=== PATIENT | female | born 1980 | race African-American/Black ===

== ENCOUNTER 2021-02-05 17:45 | Emergency (ER) | payer OTHER ==
[~2021-02-05] VITALS: Ht 175.3 cm; Wt 92.0 kg
[2021-02-05 18:04] VITALS: BP 143/97
[2021-02-05] MEDS ORDERED: ONDANSETRON ODT 4 MG TAB.RAPDIS PO ONE (18:15)
[2021-02-05] MEDS ORDERED: METOCLOPRAMIDE HCL 10 MG/2 ML VIAL. IVP ONE (18:15)
[2021-02-05] MEDS ORDERED: IV RINGERS SOLUTION,LACTATED 1,000 ML IV ONE (18:15)
--- NOTE | 2021-02-05 18:17 | PHYS DOC ---
Adult General Chief Complaint Chief Complaint: NAUSEA/VOMITING/DIARRHEA HPI HPI Patient is a 40-year-old female presents with nausea, vomiting and diarrhea which started 4 days ago after her and her family returned from [place]. States that both of her sons and other family members had similar symptoms of nausea, vomiting diarrhea which have now resolved. States that today she has had approximately three episodes of nonbloody nonbilious emesis and three episodes of watery diarrhea that was nonbloody. Denies any other recent illnesses, fevers, chest pain, shortness of breath, abdominal pain, dysuria, hematuria, blood in the stool. Denies any vaginal bleeding, discharge, pain or history of STIs. Review of Systems Review of Systems Review of systems otherwise unremarkable except noted in HPI Allergies Allergies Allergies Coded Allergies Type Severity Reaction Last Updated Verified No Known Drug Allergies 02/05/21 No Physical Exam Physical Exam Constitutional: Well developed, well nourished, no acute distress, non-toxic appearance. [] HENT: Normocephalic, atraumatic, bilateral external ears normal, oropharynx dry, no oral exudates, nose normal. [] Eyes: conjunctiva normal, no discharge. [] Neck: Normal range of motion, no tenderness, supple, no stridor. [] Cardiovascular:Heart rate regular rhythm, no murmur [] Lungs & Thorax: Bilateral breath sounds clear to auscultation [] Abdomen: soft, no tenderness, no masses, no pulsatile masses. [] Skin: Warm, dry, no erythema, no rash. [] Back: no CVA tenderness. [] Extremities: No tenderness, no cyanosis, no clubbing, ROM intact, no edema. [] Neurologic: Alert and oriented X 3, no focal deficits noted. [] Psychologic: Affect normal, judgement normal, mood normal. [] EKG EKG [] Radiology/Procedures Radiology/Procedures [] Heart Score C/O Chest Pain: No Risk Factors: Risk Factors: DM, Current or recent (<one month) smoker, HTN, HLP, family history of CAD, obesity. Risk Scores: Risk Factors: DM, Current or recent (<one month) smoker, HTN, HLP, family history of CAD, obesity. Course & Med Decision Making Course & Med Decision Making Patient is a 40-year-old female presents with nausea, vomiting and diarrhea Vital signs not concerning. Physical exam noted above. EKG with a rate of 91, QRS of 86, QTc of 413. Placed on the monitor with IV access established and IV fluid begun. Given nausea medicine. Urine negative. Urinalysis not concerning. Chemistry not concerning. On reevaluation patient stated she was feeling 100% better, was ready to be discharged home. Given nausea medicine for home. Discussed symptomatic treatment at home. Advised to follow-up with primary care physician. Gave return precautions to the ED. Patient grateful, verbalized understanding and agreed with plan of discharge. Dragon Disclaimer Dragon Disclaimer This electronic medical record was generated, in whole or in part, using a voice recognition dictation system. Departure Departure: Impression: Primary Impression: Nausea & vomiting Disposition: 01 HOME / SELF CARE / HOMELESS Condition: GOOD Referrals: MAREN LICEA MD (PCP) Patient Instructions: Diarrhea, Nausea and Vomiting Additional Instructions: Thank you for coming into the emergency department tonight and allowing us to take care of you. Please read the attached information carefully to go back over things we discussed. Please take your nausea medicine as prescribed and as needed. Please stay well-hydrated. Please follow-up with your primary care physician as needed. Please come back with new or concerning symptoms as we discussed. MATT GRACIA MD Feb 05, 2021 18:17
[2021-02-05 19:22] LABS: BACTERIA,URINE 0 /HPF (0-FEW); BILIRUBIN,URINE NEG (NEG); CLARITY,URINE CLEAR; COLOR,URINE YELLOW; GLUCOSE,URINE NEG (NEG); NITRITE,URINE NEG (NEG); RBC,URINE 0 /HPF (0-2); WBC,URINE 0 /HPF (0-4)
[2021-02-05 19:32] LABS: CALCIUM 8.6 mg/dL (8.5-10.1); CREATININE 0.9 mg/dL (0.6-1.0); GFR 83.9; POTASSIUM 3.7 mmol/L (3.5-5.1)
[2021-02-05] MEDS ORDERED: ONDANSETRON 4MG ODT 4TABLET STARTPACK. PO ONE ×2 (20:25→20:30)
== END 2021-02-05 20:30 | disposition home or self-care (01) ==
LOC: ER 17:45
DX: R11.2 Nausea with vomiting, unspecified (principal); R19.7 Diarrhea, unspecified
CPT/HCPCS: 36415; 80048; 81001; 81025; 96361; 96374; 99283; J2765; J7120; Q0162

== ENCOUNTER 2021-04-13 12:48 | Emergency (ER) | payer OTHER ==
[~2021-04-13] VITALS: Ht 175.3 cm; Wt 95.7 kg
--- NOTE | 2021-04-13 14:05 | PHYS DOC ---
Past History Past Surgical History: Tubal ligation (JACETAZ Wahl SENIOR COUNSEL) Alcohol Use: Rarely (JACETAZ Wahl SENIOR COUNSEL) Adult General Chief Complaint Chief Complaint: COUGH HPI HPI Patient is a 40-year-old female patient presenting to the ED today with complaints of cough and headache, symptoms began yesterday. Patient states his son has similar symptoms. Patient denies any fever. She states she is unvaccinated against COVID19. (TAZ LIANG Nadira SENIOR COUNSEL) Review of Systems Review of Systems Constitutional: Denies fever or chills [] Eyes: Denies change in visual acuity, redness, or eye pain [] HENT: Denies nasal congestion or sore throat [] Respiratory: Reports cough denies shortness of breath [] Cardiovascular: No additional information not addressed in HPI [] GI: Denies abdominal pain, nausea, vomiting, bloody stools or diarrhea [] : Denies dysuria or hematuria [] Musculoskeletal: Denies back pain or joint pain [] Integument: Denies rash or skin lesions [] Neurologic: Reports headache, denies focal weakness or sensory changes [] All other systems were reviewed and found to be within normal limits, except as documented in this note. (TAZ LIANG Nadira SENIOR COUNSEL) Allergies Allergies Allergies Coded Allergies Type Severity Reaction Last Updated Verified No Known Drug Allergies 02/05/21 No (GARTHTAZ SENIOR COUNSEL) Physical Exam Physical Exam Constitutional: Well developed, well nourished, no acute distress, non-toxic appearance. [] HENT: Normocephalic, atraumatic, bilateral external ears normal, oropharynx moist, no oral exudates, nose normal. [] Eyes: PERRLA, EOMI, conjunctiva normal, no discharge. [] Neck: Normal range of motion, no tenderness, supple, no stridor. [] Cardiovascular:Heart rate regular rhythm, no murmur [] Lungs & Thorax: Bilateral breath sounds clear to auscultation [] Abdomen: Bowel sounds normal, soft, no tenderness, no masses, no pulsatile masses. [] Skin: Warm, dry, no erythema, no rash. [] Back: No tenderness, no CVA tenderness. [] Extremities: No tenderness, no cyanosis, no clubbing, ROM intact, no edema. [] Neurologic: Alert and oriented X 3, normal motor function, normal sensory function, no focal deficits noted. [] Psychologic: Affect normal, judgement normal, mood normal. [] (TAZ LIANG APRN) Current Patient Data Vital Signs Vital Signs Date Time Temp Pulse Resp B/P (MAP) Pulse Ox O2 Delivery O2 Flow Rate FiO2 04/13/21 13:28 99.0 83 16 143/90 (107) 98 Room Air (TAZ LIANG APRN) EKG EKG [] (TAZ LIANG APRN) Radiology/Procedures Radiology/Procedures [] (TAZ LIANG APRN) Heart Score C/O Chest Pain: N/A Risk Factors: Risk Factors: DM, Current or recent (<one month) smoker, HTN, HLP, family history of CAD, obesity. Risk Scores: Risk Factors: DM, Current or recent (<one month) smoker, HTN, HLP, family history of CAD, obesity. (TAZ LIANG APRN) Course & Med Decision Making Course & Med Decision Making Pertinent Labs and Imaging studies reviewed. (See chart for details) This is a 40-year-old female patient presented to the ED today with headache and cough, symptoms began yesterday. She was tested for COVID-19, results will be called to her when available. Supportive care measures recommended. (TAZ LIANG APRN) Course & Med Decision Making I was the Attending physician on the above date of service of this patient. This patient was evaluated, examined, treated, and dispositioned from the emergency department by the mid-level practitioner. Although I was working at the time , no assistance was requested. Electronically signed, Caty Cornejo DO (CATY CORNEJO DO) Christian Disclaimer Christian Disclaimer This electronic medical record was generated, in whole or in part, using a voice recognition dictation system. (TAZ LIANG APRN) Departure Departure: Impression: Primary Impression: Headache Additional Impressions: Cough Person under investigation for COVID-19 Disposition: HOME / SELF CARE / HOMELESS Condition: STABLE Referrals: MAREN LICEA MD (PCP) follow up in one week Patient Instructions: Cough, Adult, [id number], Headache, FAQs Additional Instructions: You were tested for COVID-19, will call you when results available. Quarantine yourself until you get results from us. Push fluids, rest, maintain good hand hygiene. You can take [id number] Tylenol or Motrin for your pain or fever Problem Qualifiers Primary Impression: Headache Headache type: unspecified Headache chronicity pattern: unspecified pattern Intractability: not intractable Qualified Codes: R51.9 - Head ache, unspecified MUTUNGA,TAZ Waddell APRN Apr 13, 2021 14:05 CATY CORNEJO DO Apr 16, 2021 08:09
[2021-04-13 14:22] LABS: INFLUENZA A PATIENT NEGATIVE (NEGATIVE); INFLUENZA B PATIENT NEGATIVE (NEGATIVE)
[2021-04-13 14:39] VITALS: BP 115/88
== END 2021-04-13 14:39 | disposition home or self-care (01) ==
LOC: ER 12:48
DX: R05.9 Cough, unspecified (principal); R51.9 Headache, unspecified; Z20.822 Contact with and (suspected) exposure to COVID-19
CPT/HCPCS: 87428; 99283